=== PATIENT | male | born 1955 | race Two or more races ===

== ENCOUNTER → 2020-09-17 | Outpatient (CLI) | payer MEDICARE, MEDICAID ==
[2020-09-17 08:19] LABS: Basophils # (auto) 0.1 10 ^3/uL (0-0.2); Basophils % (auto) 2.1 % (0.0-2.0); Eosinophils # (auto) 0.2 10 ^3/uL (0-0.8); Eosinophils % (auto) 4.2 % (0.0-7.0); Hematocrit 39.9 % (41.0-53.0); Hemoglobin 13.6 g/dL (13.5-17.5); Lymphocytes # (auto) 1.3 10 ^3/uL (0.4-5.4); Lymphocytes % (auto) 22.9 % (10.0-50.0); Mean Corpuscular Hgb Conc. 34.1 g/dL (32.0-36.0); Mean Corpuscular Volume 90.7 fL (80.0-100.0); Monocytes # (auto) 0.5 10 ^3/uL (0-1.3); Monocytes % (auto) 8.2 % (0.0-12.0); Neutrophils # (auto) 3.5 10 ^3/uL (1.6-8.6); Neutrophils % (auto) 62.6 % (37.0-80.0); Nucleated Red Blood Cells % 0.2 %; Platelet Count (auto) 264 10^3/uL (140-450); Red Cell Distribution Width 13.2 % (11.8-14.3); White Blood Cell 5.6 10^3/uL (4.4-10.8)
[2020-09-17 08:21] LABS: Urine Bacteria FEW /hpf (None Seen); Urine Blood Negative /uL (Negative); Urine Specific Gravity 1.018 (1.001-1.035); Urine WBC 1 /hpf (0 - 3)
[2020-09-17 08:54] LABS: Albumin 3.5 g/dL (3.4-5.0); Calcium 8.7 mg/dL (8.5-10.1); Potassium 3.9 mmol/L (3.5-5.1)
[2020-09-17 08:59] LABS: BUN/Creatinine Ratio 17.7; Bilirubin, Total 0.5 mg/dL (0.2-1.0); Total Protein 7.1 g/dL (6.4-8.2)
[2020-09-17 09:01] LABS: Free T4 (Free Thyroxine) 0.95 ng/dL (0.89-1.76); Prostate Specific Antigen 1.38 ng/mL (0.0-4.0)
== END | disposition home or self-care (01) ==
LOC: LAB 07:58
PROVIDERS: ATTEND Student in an Organized Health Care Education/Training Program
DX: I10 Essential (primary) hypertension (principal); R35.1 Nocturia; E66.9 Obesity, unspecified; R73.03 Prediabetes; R35.0 Frequency of micturition
CPT/HCPCS: 36415; 80053; 80061; 81001; 83036; 84153; 84439; 84443; 85025; 87086

== ENCOUNTER → 2022-08-05 | Outpatient (CLI) | payer MEDICARE ==
[2022-08-05 08:37] LABS: Basophils # (auto) 0.1 10 ^3/uL (0-0.2); Basophils % (auto) 1.1 % (0.0-2.0); Eosinophils # (auto) 0.2 10 ^3/uL (0-0.8); Eosinophils % (auto) 3.1 % (0.0-7.0); Hematocrit 48.3 % (41.0-53.0); Lymphocytes # (auto) 1.3 10 ^3/uL (0.4-5.4); Lymphocytes % (auto) 22.4 % (10.0-50.0); Mean Corpuscular Hgb Conc. 33.1 g/dL (32.0-36.0); Mean Corpuscular Volume 87.9 fL (80.0-100.0); Monocytes # (auto) 0.5 10 ^3/uL (0-1.3); Monocytes % (auto) 8.1 % (0.0-12.0); Neutrophils # (auto) 3.9 10 ^3/uL (1.6-8.6); Neutrophils % (auto) 65.3 % (37.0-80.0); Nucleated Red Blood Cells % 0.1 %; Red Cell Distribution Width 14.6 % (11.8-14.3); White Blood Cell 5.9 10^3/uL (4.4-10.8)
[2022-08-05 08:49] LABS: Urine Bacteria NONE SEEN /hpf (None Seen); Urine Blood Negative /uL (Negative); Urine Specific Gravity 1.021 (1.001-1.035); Urine WBC 3 /hpf (0 - 3)
[2022-08-05 09:21] LABS: Albumin 3.7 g/dL (3.4-5.0); Calcium 8.9 mg/dL (8.5-10.1); Potassium 4.1 mmol/L (3.5-5.1)
[2022-08-05 09:27] LABS: BUN/Creatinine Ratio 17.3; Bilirubin, Total 0.6 mg/dL (0.2-1.0); Total Protein 7.7 g/dL (6.4-8.2)
== END | disposition home or self-care (01) ==
LOC: LAB 08:20
PROVIDERS: ATTEND Student in an Organized Health Care Education/Training Program
DX: N40.0 Benign prostatic hyperplasia without lower urinary tract symptoms (principal); R73.9 Hyperglycemia, unspecified; R03.0 Elevated blood-pressure reading, without diagnosis of hypertension; I10 Essential (primary) hypertension
CPT/HCPCS: 36415; 80053; 80061; 81001; 83036; 84153; 84443; 85025; 87086

== ENCOUNTER → 2024-09-18 | Outpatient (CLI) | payer MEDICARE ==
[2024-09-18 08:12] LABS: Urine Bacteria None Seen /hpf (None Seen)
[2024-09-18 08:38] LABS: Urine Blood Negative /uL (Negative); Urine Clarity Clear (Clear); Urine Color Yellow (Yellow); Urine Mucus FEW (None Seen); Urine Protein, UAD Negative (Negative); Urine Specific Gravity 1.026 (1.001-1.035); Urine Squamous Epithelial Cell FEW /hpf (<5); Urine Urobilinogen Normal (Negative); Urine WBC < 1 /HPF (0-3)
[2024-09-18 08:39] LABS: Basophils # (auto) 0.1 10 ^3/uL (0-0.2); Eosinophils # (auto) 0.2 10 ^3/uL (0-0.8); Monocytes # (auto) 0.6 10 ^3/uL (0-1.3); Nucleated Red Blood Cells % 0.1 %; Red Cell Distribution Width 19.1 % (11.8-14.3)
[2024-09-18 08:44] LABS: Basophils % (auto) 1.3 % (0.0-2.0); Eosinophils % (auto) 3.7 % (0.0-7.0); Hematocrit 26.6 % (41.0-53.0); Hemoglobin 7.9 g/dL (13.5-17.5); Lymphocytes # (auto) 1.1 10 ^3/uL (0.4-5.4); Lymphocytes % (auto) 22.7 % (10.0-50.0); Mean Corpuscular Hemoglobin 19.3 pg (28.0-32.0); Mean Corpuscular Hgb Conc. 29.6 g/dL (32.0-36.0); Mean Corpuscular Volume 65.3 fL (80.0-100.0); Monocytes % (auto) 11.3 % (0.0-12.0); Neutrophils # (auto) 3.1 10 ^3/uL (1.6-8.6); Platelet Count (auto) 324 10^3/uL (140-450); Red Blood Cells 4.07 10^6/uL (4.5-5.90)
[2024-09-18 09:10] LABS: Alanine Aminotransferase 15 U/L (7-40); Albumin 4.3 g/dL (3.2-4.8); Alkaline Phosphatase 64 U/L (46-116); Anion Gap 10 (5-15); Aspartate Aminotransferase 19 U/L (13-40); BUN/Creatinine Ratio 22.5 (10.0-20.0); Bilirubin, Total 0.7 mg/dL (0.2-1.0); Blood Urea Nitrogen 16 mg/dL (9-23); Calcium 9.2 mg/dL (8.7-10.4); Carbon Dioxide 25 mmol/L (20-31); Cholesterol 145 mg/dL (< 200); Glucose 102 mg/dL (74-106); LDL Cholesterol 92 mg/dL (< 100); Potassium 4.1 mmol/L (3.5-5.1); Sodium 142 mmol/L (136-145); Total Protein 6.8 g/dL (5.7-8.2); Triglycerides 83 mg/dL (< 150)
[2024-09-18 09:12] LABS: Chloride 107 mmol/L (98-107); HDL Cholesterol 39 mg/dL (40-59)
== END | disposition home or self-care (01) ==
LOC: LAB 07:59
PROVIDERS: ATTEND Student in an Organized Health Care Education/Training Program
DX: R35.1 Nocturia (principal); R73.9 Hyperglycemia, unspecified; E66.01 Morbid (severe) obesity due to excess calories; F32.0 Major depressive disorder, single episode, mild
CPT/HCPCS: 36415; 80053; 80061; 81001; 83036; 84443; 85025; 87086

== ENCOUNTER 2024-12-31 10:01 | Inpatient (IN) | payer MEDICARE, MEDICAID ==
[~2024-12-31] VITALS: Ht 175.3 cm; Wt 91.0 kg
--- NOTE | 2024-12-31 10:33 | ED.PDOC ---
Abena. trauma (HPI) HPI Comments 69 y.o male with PMHx of cerebral palsy, presents to the ED for a chief complaint of bilateral arm pain. Sister, who is caregiver states patient had two falls, one last night and the other today at 0600 after his legs and arms went stiff. Sister reports positive head injury on both falls. Patient reports he was stiff for about 30-40 minutes, followed by soreness on upper and lower extremity. Patient ambulates with a walker and assistance of sister. Patient denies any nausea, vomiting, chest pain, lightheadedness, fever, chills. Chief Complaint: Fall Injury Time Seen by MD: 10:20 Primary Care Provider: FLOR Reviewed notes: Nurses Notes, Medications, Allergies Allergies: Coded Allergies: NO KNOWN ALLERGIES (Unverified , 12/31/24) Information Source: Patient, Relative (sister ) Mode of Arrival: Wheelchair Severity: Moderate Timing: Hours Duration: Since onset Location: (R) Arm, (L) Arm Location of laceration: None Mechanism: Fall Associated signs and symtoms: Other Past Medical History Past Medical History (Other): CP Surgical History: Denies all surgeries Family History Family History: Reviewed,noncontributory to illness Social History Smoker: Non-Smoker Alcohol: Denies ETOH Use Drugs: Denies Drug Use Lives In: Home Constitutional: denies: chills, diaphoresis, fatigue, fever, malaise, sweats, weakness, others EENTM: denies: blurred vision, double vision, ear bleeding, ear discharge, ear drainage, ear pain, ear ringing, eye pain, eye redness, hearing loss, mouth pain, mouth swelling, nasal discharge, nose bleeding, nose congestion, nose pain, photophobia, tearing, throat pain, throat swelling, voice changes, others Respiratory: denies: cough, hemoptysis, orthopnea, SOB at rest, shortness of breath, SOB with excertion, stridor, wheezing, others Cardiovascular: denies: chest pain, dizzy spells, diaphoresis, Dyspnea on exertion, edema, irregular heart beat, left arm pain, lightheadedness, palpitations, PND, syncope, others Gastrointestinal: denies: abdomen distended, abdominal pain, blood streaked bowels, constipated, diarrhea, dysphagia, difficulty swallowing, hematemesis, melena, nausea, poor appetite, poor fluid intake, rectal bleeding, rectal pain, vomiting, others Genitourinary: denies: burning, dysuria, flank pain, frequency, hematuria, incontinence, penile discharge, penile sore, pain, testicle pain, testicle swelling, urgency, others Neurological: denies: dizziness, fainting, headache, left sided numbness, left sided weakness, numbness, paresthesia, pre-existing deficit, right sided numbness, right sided weakness, seizure, speech problems, tingling, tremors, weakness, others Musculoskeletal: reports: others (arm pain ); denies: back pain, gout, joint pain, joint swelling, muscle pain, muscle stiffness, neck pain Integumetry: denies: bruises, change in color, change in hair/nails, dryness, laceration, lesions, lumps, rash, wounds, others Allergic/Immunocompromised: denies: Difficulty Healing, Frequent Infections, Hives, Itching, others Hematologic/Lymphatic: denies: anemia, blood clots, easy bleeding, easy bruising, swollen glands, others Endocrine: denies: excessive hunger, excessive sweating, excessive thirst, excessive urination, flushing, intolerance to cold, intolerance to heat, unexplained weight gain, unexplained weight loss, others Psychiatric: denies: anxiety, bipolar disorder, depression, hopeless, panic disorder, schizophrenia, sleepless, suicidal, others All Other Systems: Reviewed and Negative Physical Exam General Appearance: Moderate Distress HEENT: Normal ENT Inspection, Pharynx Normal, TMs Normal Neck: Full Range of Motion, Non-Tender, Normal, Normal Inspection Respiratory: Chest Non-Tender, Lungs Clear, No Accessory Muscle Use, No Respiratory Distress, Normal Breath Sounds Cardiovascular: No Edema, No JVD, No Murmur, No Gallop, Normal Peripheral Pulse s, Regular Rate/Rhythm Breast Exam: Deferred Gastrointestinal: No Organomegaly, Non Tender, No Pulsatile Mass, Normal Bowel Sounds, Soft Genitalia: Deferred Pelvic: Deferred Rectal: Deferred Extremities: No calf tenderness, Normal capillary refill, Other (Rigid extremities) Musculoskeletal : Apperance: Normal Neurologic: Alert, ice cream chef II-XII nml as Tested, Motor Weakness, Normal Affect, Normal Mood, No Sensory Deficits Cerebellar Function: Normal Reflexes: Normal Skin: Dry, Normal Color, Warm, Other (Abrasions to the forehead area) Lymphatic: No Adenopathy Was a procedure done? Was a procedure done?: No Differential Diagnosis Multiple Trauma: Closed Head Injury, Fractures, Abrasions, Contusion X-Ray, Labs, Meds, VS Vital Signs Date Time Temp Pulse Resp B/P (MAP) Pulse Ox O2 Delivery O2 Flow Rate FiO2 12/31/24 11:15 97.9 77 96 134/74 (94) 96 97.9 12/31/24 10:12 97.3 101 18 122/60 (80) 95 97.3 Lab Test 12/31/24 10:58 Range/Units White Blood Count 10.4 4.4-10.8 10^3/uL Red Blood Count 5.45 4.5-5.90 10^6/uL Hemoglobin 15.6 13.5-17.5 g/dL Hematocrit 46.5 41.0-53.0 % Mean Corpuscular Volume 85.2 80.0-100.0 fL Mean Corpuscular Hemoglobin 28.6 28.0-32.0 pg Mean Corpuscular Hemoglobin Concent 33.6 32.0-36.0 g/dL Red Cell Distribution Width 23.1 H 11.8-14.3 % Platelet Count 205 140-450 10^3/uL Mean Platelet Volume 7.8 6.9-10.8 fL Neutrophils (%) (Auto) 82.6 H 37.0-80.0 % Lymphocytes (%) (Auto) 10.0 10.0-50.0 % Monocytes (%) (Auto) 6.6 0.0-12.0 % Eosinophils (%) (Auto) 0.1 0.0-7.0 % Basophils (%) (Auto) 0.7 0.0-2.0 % Neutrophils # (Auto) 8.6 1.6-8.6 10 ^3/uL Lymphocytes # (Auto) 1.0 0.4-5.4 10 ^3/uL Monocytes # (Auto) 0.7 0-1.3 10 ^3/uL Eosinophils # (Auto) 0 0-0.8 10 ^3/uL Basophils # (Auto) 0.1 0-0.2 10 ^3/uL Nucleated Red Blood Cells 0.0 % Platelet Estimate Adequate Anisocytosis (manual) Slight Schistocytes Few Sodium Level 141 136-145 mmol/L Potassium Level 3.8 3.5-5.1 mmol/L Chloride Level 107 98-107 mmol/L Carbon Dioxide Level 23 20-31 mmol/L Anion Gap 11 5-15 Blood Urea Nitrogen 16 9-23 mg/dL Creatinine 0.91 0.700-1.30 mg/dL Glomerular Filtration Rate Calc 90 >90 mL/min BUN/Creatinine Ratio 17.6 10.0-20.0 Serum Glucose 107 H 74-106 mg/dL Calcium Level 9.9 8.7-10.4 mg/dL CT HEAD WITHOUT CONTRAST IMPRESSION: No intracranial hemorrhage or mass effect. Parietal scalp hematoma. Moderate chronic microvascular ischemic changes. The patient's CBC is within normal limits The chemistry panel is within normal limits At this time we are concerned about the patient having autonomic dysfunction The patient is being admitted to the hospitalist The patient also has a diagnosis of blunt head trauma and fall Images Reviewed?: Images reviewed and evaluated by me Time of 1ST Reevaluation: 10:29 Reevaluation 1ST: Unchanged Patient Education/Counseling: Diagnosis, Treatment, Prognosis Family Education/Counseling: Diagnosis, Treatment, Prognosis Departure 1 Departure Time of Disposition: 13:08 Impression: Primary Impression: Autonomic dysfunction Additional Impressions: Blunt head trauma Qualified Codes: S09.8XXA - Other specified injuries of head, initial encounter History of fall Disposition: ADMITTED INPATIENT Admit to: Tele Condition: Fair Critical Care Note Critical Care Time?: Yes (45 min-critical care time only) Stability Stability form required: Yes Unstable for transfer: Telemetry monitoring (Telemetry monitoring required), ED Physician Assesment (Clinical assesment) I personally scribed for NADER MICHAEL MD ([email or web address]) on 12/31/24 at 10:33. Electronically submitted by Stacy Mancini ([facility])Lootsie). I personally scribed for NADER MICHAEL MD ([email or web address]) on 12/31/24 at 12:02. Electronically submitted by Stacy Mancini ([facility]). NADER MICHAEL MD Dec 31, 2024 10:33
[2024-12-31 11:19] LABS: Potassium 3.8 mmol/L (3.5-5.1); Sodium 141 mmol/L (136-145)
[2024-12-31 11:20] LABS: Anion Gap 11 (5-15); Carbon Dioxide 23 mmol/L (20-31); Hemoglobin 15.6 g/dL (13.5-17.5)
[2024-12-31 11:21] LABS: Calcium 9.9 mg/dL (8.7-10.4)
[2024-12-31 11:26] LABS: BUN/Creatinine Ratio 17.6 (10.0-20.0); Blood Urea Nitrogen 16 mg/dL (9-23); Chloride 107 mmol/L (98-107); Glucose 107 mg/dL (74-106)
--- NOTE | 2024-12-31 11:29 | DVH ---
CT HEAD WITHOUT CONTRAST Indication: fall EXAM DATE: 12/31/2024 10:43 AM COMPARISON: None TECHNIQUE: CT of the head without intravenous contrast. RADIATION DOSE: CTDIvol: 66. mGy, DLP: 1177 mGy*cm FINDINGS: There is no intracranial hemorrhage. There is no extra-axial fluid, mass, mass effect or midline shif t. The ventricles are midline and normal in size. Basilar cisterns are patent. There are moderate per iventricular and subcortical white matter chronic microvascular ischemic changes. Parietal scalp romaine sky. Mastoids well pneumatized. Mucosal thickening of the maxillary sinuses. Imaged portion of the orbits are unremarkable. IMPRESSION: No intracranial hemorrhage or mass effect. Parietal scalp hematoma. Moderate chronic microvascular ischemic changes.
[2024-12-31 11:40] LABS: Hematocrit 46.5 % (41.0-53.0); Mean Corpuscular Hemoglobin 28.6 pg (28.0-32.0); Mean Corpuscular Volume 85.2 fL (80.0-100.0); Nucleated Red Blood Cells % 0.0 %
[2024-12-31 12:40] LABS: Anisocytosis Slight
[2024-12-31] MEDS ORDERED: MORPHINE SULFATE INJ 2 MG/ml SYRG IV PRN (13:45)
[2024-12-31] MEDS ORDERED: ONDANSETRON HCL 4 MG/2 ML VIAL IV PRN (13:45)
[2024-12-31] MEDS ORDERED: DOCUSATE SOD 100 MG CAP PO PRN (13:45)
[2024-12-31] MEDS ORDERED: ACETAMINOPHEN 325 MG TAB PO PRN (13:45)
[2024-12-31] MEDS ORDERED: NITROGLYCERIN 0.4 MG SL TAB SL PRN (13:45)
[2024-12-31] MEDS ORDERED: FERR325T20 PO (13:59)
[2024-12-31] MEDS ORDERED: TAMS0.4C39 PO (13:59)
[2024-12-31] MEDS ORDERED: ESCI5TAB20 PO (13:59)
--- NOTE | 2024-12-31 14:01 | DVHHP2 ---
History of Present Illness Reason for Visit: Fall History of Present Illness Lesley Alvarez is a 69-year-old male with past medical history of Cerebral palsy, who came to the hospital S/P 2 falls this morning. The first fall was at 0200 and the second at 0600. He did hit his head during both falls, has visible rug burn to forehead. He states he fell because his upper and lower extremities became stiff and he could not control them. Complains of pain to bilateral upper and lower extremities after falling. States it took him a while to get up off the ground after both falls. He lives with his mother, but his sister is only a couple blocks away, and she helps with his care. DIRECTOR OF ANCILLARY SERVICES: Other (Cerebral palsy) Past Surgical History: None Smoke: No ALCOHOL: none Drugs: None Lives: with Family Domestic Violence: Neg Review of Systems Constitutional: No: Fever, Chills, Sweats, Weakness, Malaise, Other Eyes: No: Pain, Vision change, Conjunctivae inflammation, Eyelid inflammation, Other, Redness ENT: No: Ear pain, Ear discharge, Nose pain, Nose discharge, Nose congestion, Mouth pain, Mouth swelling, Throat pain, Throat swelling, Other Respiratory: No: Cough, Dry, Shortness of breath, SOB with excertion, Wheezing, Hemoptysis, Pleuritic Pain, Sputum, Wheezing, Other Cardiovascular: No: Chest Pain, Palpitations, Orthopnea, Paroxysmal Noc. Dyspnea, Edema, Lt Headedness, Other Gastrointestinal: No: Nausea, Vomiting, Abdominal Pain, Diarrhea, Constipation, Melena, Hematochezia, Other Genitourinary: No Dysuria, No Frequency, No Incontinence, No Hematuria, No Retention, No Other Musculoskeletal: No: other, neck pain, shoulder pain, arm pain, back pain, hand pain, leg pain, foot pain Skin: No: Rash, Lesions, Jaundice, Bruising, Other Neurological: Weakness, Incoordination, Other (Bilateral upper and lower extremity stiffness); No: Numbness, Change in speech, Confusion, Seizures Allergies: Coded Allergies: NO KNOWN ALLERGIES (Unverified , 12/31/24) Exam Vital Signs Vital Signs Date Time Temp Pulse Resp B/P (MAP) Pulse Ox O2 Delivery O2 Flow Rate FiO2 12/31/24 11:15 97.9 77 96 134/74 (94) 96 97.9 General Appearance: Alert, Oriented X3, Cooperative, mild distress HEENT: Atraumatic, PERRLA, Mucous membr. moist/pink Respiratory: Clear to auscultation, Normal air movement Cardiovascular: Regular rate, Normal S1, Normal S2, No murmurs Abdominal: Normal bowel sounds, Soft, No tenderness, No hepatospenomegaly Extremities: No clubbing, No cyanosis, No edema, Normal pulses, No tenderness/swelling Skin: No rashes, No breakdown (rug burn to forehead), No significant lesion Neuro: Other (Cerebral palsy, uses a walker to ambulate at baseline, ) Psych/Mental Status: Mental status NL, Mood NL Labs/Xrays Labs Test 12/31/24 10:58 Range/Units White Blood Count 10.4 4.4-10.8 10^3/uL Red Blood Count 5.45 4.5-5.90 10^6/uL Hemoglobin 15.6 13.5-17.5 g/dL Hematocrit 46.5 41.0-53.0 % Mean Corpuscular Volume 85.2 80.0-100.0 fL Mean Corpuscular Hemoglobin 28.6 28.0-32.0 pg Mean Corpuscular Hemoglobin Concent 33.6 32.0-36.0 g/dL Red Cell Distribution Width 23.1 H 11.8-14.3 % Platelet Count 205 140-450 10^3/uL Mean Platelet Volume 7.8 6.9-10.8 fL Neutrophils (%) (Auto) 82.6 H 37.0-80.0 % Lymphocytes (%) (Auto) 10.0 10.0-50.0 % Monocytes (%) (Auto) 6.6 0.0-12.0 % Eosinophils (%) (Auto) 0.1 0.0-7.0 % Basophils (%) (Auto) 0.7 0.0-2.0 % Neutrophils # (Auto) 8.6 1.6-8.6 10 ^3/uL Lymphocytes # (Auto) 1.0 0.4-5.4 10 ^3/uL Monocytes # (Auto) 0.7 0-1.3 10 ^3/uL Eosinophils # (Auto) 0 0-0.8 10 ^3/uL Basophils # (Auto) 0.1 0-0.2 10 ^3/uL Nucleated Red Blood Cells 0.0 % Platelet Estimate Adequate Anisocytosis (manual) Slight Schistocytes Few Sodium Level 141 136-145 mmol/L Potassium Level 3.8 3.5-5.1 mmol/L Chloride Level 107 98-107 mmol/L Carbon Dioxide Level 23 20-31 mmol/L Anion Gap 11 5-15 Blood Urea Nitrogen 16 9-23 mg/dL Creatinine 0.91 0.700-1.30 mg/dL Glomerular Filtration Rate Calc 90 >90 mL/min BUN/Creatinine Ratio 17.6 10.0-20.0 Serum Glucose 107 H 74-106 mg/dL Calcium Level 9.9 8.7-10.4 mg/dL CT HEAD WITHOUT CONTRAST FINDINGS: There is no intracranial hemorrhage. There is no extra-axial fluid, mass, mass effect or midline shift. The ventricles are midline and normal in size. Basilar cisterns are patent. There are moderate periventricular and subcortical white matter chronic microvascular ischemic changes. Parietal scalp hematoma. Mastoids well pneumatized. Mucosal thickening of the maxillary sinuses. Imaged portion of the orbits are unremarkable. IMPRESSION: No intracranial hemorrhage or mass effect. Parietal scalp hematoma. Moderate chronic microvascular ischemic changes. Assessment/Plan Assessment/Plan Assessment: Autonomic dysfunction, Cerebral Palsy, Plan: Admit to Tele, Neurology consult, Physical therapy evaluation, Fall risk, Pain management, Home medications reconciled, Plan discussed with: Patient, Other (Sister, mother) My Orders Orders - DEJA STERLING Procedure Category Date Status Time Admit ADMIT 12/31/24 Transmitted 13:39 Code Status CODE 12/31/24 Transmitted 13:39 Hydrocodone-Acet PHA 12/31/24 Transmitted 5/325mg Tab ([place] 13:45 Ondansetron Hcl PHA 12/31/24 Transmitted (Zofran) 13:45 Docusate Sodium PHA 12/31/24 Transmitted Capsule (Colace 13:45 Fall Risk Precautions DESIRAE 12/31/[address] 13:39 Complete Blood Count LAB 01/01/25 Verified 04:00 Comprehensive LAB 01/01/25 Verified Metabolic Panel 04:00 Pt Request For Service PT 12/31/24 Transmitted 13:39 Condition: Serious DESIRAE 12/31/24 In Process 13:39 Acetaminophen Tablet PHA 12/31/24 Transmitted (Tylenol Tablet) 13:45 Nitroglycerin PHA 12/31/24 Transmitted Sublingual (Ntrostat 13:45 Morphine Sulfate PHA 12/31/24 Transmitted Injection 13:45 Stat Ekg For Chest [facility] 12/31/24 In Process Pain 13:39 Notify Md Of Changes [facility] 12/31/24 In Process From Base 13:39 Electric Motor Tester Assembler For [facility] 12/31/24 In Process 24 Hours 13:39 Emergency Dysrhythmia [facility] 12/31/24 In Process Protocol 13:39 Rhythm Strips Once [facility] 12/31/24 Transmitted Every Shift 13:39 Oxygen By Nasal RT 12/31/24 Transmitted Cannula 13:39 * Neurology Consult CONS 12/31/24 Transmitted 13:39 Date of Service: Dec 31, 2024 Billing Provider: DEJA STERLING Common Visit Codes: [id number] INP/OBS CARE (MOD) DEJA STERLING Dec 31, 2024 14:01
[2024-12-31] MEDS: HYDROcodone-ACET 5/325MG TAB PO PRN (16:51)
[2024-12-31 17:00] VITALS: BP 139/75; PULSE 78; RESP 16; TEMP 99; O2SAT 98
--- NOTE | 2024-12-31 18:57 | DVHINCON2 ---
Date of service: Dec 31, [address] Oquendo Reason for Consultation Autonomic dysfunction History of Present Illness Mr. Alvarez is a 69 years old right-handed gentleman with a history of cerebral palsy, he came to the [facility] on 12/31/2024 with a chief complaint of pain in the arms. At this time, he is awake, oriented x3, he speech with slurred voice, his sister, his care provider provided the history He was born with cerebral palsy, he has progressively gait disturbance, he shuffles, he can only walk with a walker slowly. He has weakness in the bilateral extremities, with the left side weaker. He has no difficulty with bowel/bladder control Around 2:00 a.m. on 12/31/2024, when he was off bed, his arms and legs became stiff for 30-45 minutes and he had fall with no associated mental status changes, after he recovered, he was able to walk as before Around 6:00 a.m. on 12/31/2024, when he was off bed, he had another stiffness in the arms and legs for about 30 minutes with a fall and without altered mental status, after he recovered, he was able to walk again He denies associated dizziness/lightheadedness, vision changes After above two events, the patient has had pain in the shoulders, brachialis, bilateral thighs. He has never had similar problems previously Urinalysis, 09/18/2024: Unremarkable CBC, 12/31/2024: Unremarkable BMP, 12/31/2024: Unremarkable TG/HDL/LDL/HDL, 09/18/2024: 83/145/92/39 TSH, 09/18/2024: 0.91 FT4, 09/18/2024: 0.95 CT head, 12/31/2024: No intracranial hemorrhage or mass effect. Parietal scalp hematoma. Moderate chronic microvascular ischemic changes. Past Medical History Cerebral palsy, iron deficiency Past Surgical History No major medical problems Family History No major medical problems Social History He is a nonsmoker, no history of drug or alcohol abuse Allergies: Coded Allergies: NO KNOWN ALLERGIES (Unverified , 12/31/24) Home Meds Reported Medications Ferrous Sulfate (Ferosul) 325 Mg Tab, 1 TAB PO DAILY 12/31/24 Escitalopram Oxalate (ESCITALOPRAM OXALATE) 5 Mg Tab, 1 TAB PO DAILY 12/31/24 Tamsulosin Hcl (Tamsulosin Hcl) 0.4 Mg Cap, 2 CAP PO DAILY 12/31/24 Current Medications Current Medications Medications (Trade) Dose Ordered Sig/Michelle Route PRN Reason Start Time Stop Time Status Last Admin Acetaminophen/ Hydrocodone Bitart ([place] 5/325MG Tab) 1 tab Q4HP PRN PO MODERATE PAIN (4-6 PAIN SCALE) 12/31/24 13:45 12/31/24 16:51 Ondansetron HCl (Zofran) 4 mg Q4HP PRN IV NAUSEA / VOMITING 12/31/24 13:45 Docusate Sodium (Colace Capsule) 100 mg BIDPRN PRN PO FOR CONSTIPATION 12/31/24 13:45 Acetaminophen (Tylenol Tablet) 650 mg Q6HP PRN PO PAIN SCALE 1-3 OR TEMP>100.4 12/31/24 13:45 Nitroglycerin (Ntrostat Sublingual) 0.4 mg Q5MINP PRN SL FOR CHEST PAIN 12/31/24 13:45 Morphine Sulfate 2 mg Q30M PRN IV FOR CHEST PAIN 12/31/24 13:45 Review of Systems As above, the other systems are negative Vital Signs Vital Signs Date Time Temp Pulse Resp B/P (MAP) Pulse Ox O2 Delivery O2 Flow Rate FiO2 12/31/24 17:00 99.0 78 16 139/75 (96) 98 99.0 12/31/24 17:00 Room Air Physical Exam GENERAL EXAM: General: the patient is well developed and nourished. No acute distress. HEENT: Normocephalic, neck is supple, no carotid bruits. No mass. RESPIRATORY: Normal respiratory effort with symmetrical lung expansion. Lungs clear to auscultation. CARDIOVASCULAR: Regular rate and rhythm with no murmurs. S1, S2. ABDOMEN: Soft, nontender, normal bowel sound MUSCULOSKELETAL EXAM: Tenderness to palpation in the shoulders, brachia, bilateral size, with the left shoulder more affected No tenderness to palpation in the neck and spine NEUROLOGICAL: MENTAL STATUS: Awake and alert. Oriented to person, place, time SPEECH, LANGUAGE, HIGHER CORTICAL FUNCTION: no aphasia but has mild dysarthria CRANIAL NERVES: #2: Intact visual mijares to confrontation. The optic discs were sharp #3,4,6: Pupils are equal, round and reactive. EOMs full and conjugate. No nystagmus. #5: Facial sensation intact in all three divisions bilaterally. Mandibular stren gth intact. #7: Facial muscles symmetrical and strength intact. #8: Hearing grossly normal to voice. #9,10: Uvula and soft palate rise in the midline. Swallow and voice are normal. #11: Trapezius and sternomastoid strength intact bilaterally. #12: Tongue midline. No fasciculations or atrophy. SENSATION: Sensation to touch and pinprick is normal. MOTOR: Normal tone in the upper and lower extremity. Normal muscle bulk. No fasciculations. No abnormal movements or posturing. Muscle strength of the major groups in the upper extremities is 4-5/5. Muscle strength of the major groups in the lower extremities is 4/5, with right leg, not left leg, drift REFLEXES: Deep tendon reflexes are symmetrical. No pathological reflexes. CEREBELLAR/COORDINATION: Finger to nose is normal bilaterally. GAIT/STATION: deferred. Labs/Diagnostic Data Labs Test 12/31/24 10:58 Range/Units White Blood Count 10.4 4.4-10.8 10^3/uL Red Blood Count 5.45 4.5-5.90 10^6/uL Hemoglobin 15.6 13.5-17.5 g/dL Hematocrit 46.5 41.0-53.0 % Mean Corpuscular Volume 85.2 80.0-100.0 fL Mean Corpuscular Hemoglobin 28.6 28.0-32.0 pg Mean Corpuscular Hemoglobin Concent 33.6 32.0-36.0 g/dL Red Cell Distribution Width 23.1 H 11.8-14.3 % Platelet Count 205 140-450 10^3/uL Mean Platelet Volume 7.8 6.9-10.8 fL Neutrophils (%) (Auto) 82.6 H 37.0-80.0 % Lymphocytes (%) (Auto) 10.0 10.0-50.0 % Monocytes (%) (Auto) 6.6 0.0-12.0 % Eosinophils (%) (Auto) 0.1 0.0-7.0 % Basophils (%) (Auto) 0.7 0.0-2.0 % Neutrophils # (Auto) 8.6 1.6-8.6 10 ^3/uL Lymphocytes # (Auto) 1.0 0.4-5.4 10 ^3/uL Monocytes # (Auto) 0.7 0-1.3 10 ^3/uL Eosinophils # (Auto) 0 0-0.8 10 ^3/uL Basophils # (Auto) 0.1 0-0.2 10 ^3/uL Nucleated Red Blood Cells 0.0 % Platelet Estimate Adequate Anisocytosis (manual) Slight Schistocytes Few Sodium Level 141 136-145 mmol/L Potassium Level 3.8 3.5-5.1 mmol/L Chloride Level 107 98-107 mmol/L Carbon Dioxide Level 23 20-31 mmol/L Anion Gap 11 5-15 Blood Urea Nitrogen 16 9-23 mg/dL Creatinine 0.91 0.700-1.30 mg/dL Glomerular Filtration Rate Calc 90 >90 mL/min BUN/Creatinine Ratio 17.6 10.0-20.0 Serum Glucose 107 H 74-106 mg/dL Calcium Level 9.9 8.7-10.4 mg/dL Assessment To spells of muscle stiffness, fall without altered mental status Etiology unclear Cerebral palsy with left-sided weakness, but fixed examination showed right leg drift 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 Although this document has been carefully reviewed, there may still be some phonetic and typographical errors. These areas are purely typographical due to imperfections of the software programs, and do not reflect any compromise in the patient's medical care. Plan discussed with: Other TRES RUFF MD Dec 31, 2024 18:57
[2024-12-31] MEDS ORDERED: LORazepam 2MG/ML-1ML VIAL IV PRN (20:15)
== END 2024-12-31 21:56 | disposition left against medical advice (07) | DRG 74 ==
LOC: ER 10:01 → OVERFLOW 13:39
PROVIDERS: ADMIT Nurse Practitioner Family; ATTEND Nurse Practitioner Family
DX: G90.89 Other disorders of autonomic nervous system (principal); G80.8 Other cerebral palsy; M25.512 Pain in left shoulder; R47.1 Dysarthria and anarthria; R26.9 Unspecified abnormalities of gait and mobility; R53.1 Weakness; S09.8XXA Other specified injuries of head, initial encounter; Z53.29 Procedure and treatment not carried out because of patient's decision for other reasons; Z91.81 History of falling; W18.39XA Other fall on same level, initial encounter; Y93.89 Activity, other specified; Y92.89 Other specified places as the place of occurrence of the external cause; Y99.8 Other external cause status
CPT/HCPCS: 36415; 70450; 80048; 82550; 85025; 99291; G0378

== ENCOUNTER 2025-02-04 07:44 | Outpatient (CLI) | payer MEDICARE, MEDICAID ==
[~2025-02-04 07:44] MED LIST: ESCI5TAB20 PO; FERR325T20 PO; TAMS0.4C39 PO
[2025-02-04 09:01] LABS: Alanine Aminotransferase 23 U/L (7-40); Albumin 4.4 g/dL (3.2-4.8); Alkaline Phosphatase 63 U/L (46-116); Anion Gap 10 (5-15); BUN/Creatinine Ratio 11.5 (10.0-20.0); Calcium 9.3 mg/dL (8.7-10.4); Carbon Dioxide 26 mmol/L (20-31); Chloride 106 mmol/L (98-107); Cholesterol 171 mg/dL (< 200); Glucose 96 mg/dL (74-106); HDL Cholesterol 40 mg/dL (40-59); Potassium 4.1 mmol/L (3.5-5.1); Sodium 142 mmol/L (136-145); Total Protein 7.0 g/dL (5.7-8.2); Triglycerides 132 mg/dL (< 150)
[2025-02-04 09:02] LABS: Bilirubin, Total 0.5 mg/dL (0.2-1.0)
[2025-02-04 09:03] LABS: Blood Urea Nitrogen 9 mg/dL (9-23)
== END 2025-02-04 17:00 | disposition home or self-care (01) ==
LOC: LAB 07:44
PROVIDERS: ATTEND Licensed Practical Nurse
DX: D50.0 Iron deficiency anemia secondary to blood loss (chronic) (principal); E55.9 Vitamin D deficiency, unspecified; I10 Essential (primary) hypertension; R73.03 Prediabetes; Z00.01 Encounter for general adult medical examination with abnormal findings; G80.9 Cerebral palsy, unspecified; Z12.11 Encounter for screening for malignant neoplasm of colon; Z53.20 Procedure and treatment not carried out because of patient's decision for unspecified reasons
CPT/HCPCS: 36415; 80053; 80061; 82043; 82306; 82728; 83036; 83540; 84443